=== PATIENT | male | born 1965 ===

== ENCOUNTER 2017-09-01 08:12 | Emergency (ER) | payer OTHER ==
[~2017-09-01] VITALS: Ht 172.7 cm; Wt 74.8 kg
[2017-09-01] MEDS ORDERED: SINEMET 25-1001 EACH PO (08:34)
== END 2017-09-01 10:51 | disposition home or self-care (01) ==
LOC: ER 08:12
DX: R53.1 Weakness (principal); F06.4 Anxiety disorder due to known physiological condition